=== PATIENT | male | born 1965 | race Caucasian/White ===

== ENCOUNTER 2017-02-18 07:59 | Emergency (ER) | payer BC ==
[~2017-02-18] VITALS: Ht 180.3 cm; Wt 80.0 kg
[2017-02-18 08:03] VITALS: BP 149/101; PULSE 90; RESP 16; TEMP 97.8; O2SAT 99
[2017-02-18] MEDS ORDERED: ANDR1.62 TOPICAL (08:12)
[2017-02-18] MEDS ORDERED: HYDR-3583 PO (08:49)
[2017-02-18] MEDS ORDERED: SOMA350T PO (08:49)
--- NOTE | 2017-02-18 08:49 | PD ---
HPI Chief Complaint: Back/ Neck Pain or Injury Time Seen by Provider: 08:41 Travel History International Travel<30 days: No Contact w/Intl Traveler<30days: No Traveled to known affect area: No History of Present Illness HPI Patient presents with intractable right sciatic pain for 10 days. Denies any acute misstep or fall. Reports injury to his lower back when he was in his 20s with intermittent episodes of aggravated right sciatic pain that normally responds to nonsteroidal anti-inflammatories warm heat gentle stretching and strengthening and massage. Reports yearly MRI. This episode however has persisted. He reports evaluation in 2 separate emergency rooms. Failed oral pain medications muscle relaxers and steroid tapers. States he is attempted to see a neurologist with inability to be evaluated. Reports severe pain to light touch in the right lower extremity with decreased muscle strength. Reports using a cane regularly. Reports using a wheelchair. PFSH Past Medical History Medical History: Denies Significant Hx Diminished Hearing: No Tetanus Vaccination: < 5 Years Past Surgical History Tonsillectomy: Yes Social History Alcohol Use: No Tobacco Use: No Substance Use: No Allergies-Medications (Allergen,Severity, Reaction): Coded Allergies: No Known Allergies (Unverified , 02/18/17) Reported Meds & Prescriptions Reported Meds & Active Scripts Active Soma (Carisoprodol) 350 Mg Tab 350 Mg PO QID PRN Hydrocodone-Acetaminophen 10-325 mg Tab 1 Tab PO Q4H PRN Reported Androgel Pump Topical (Testosterone) 1.62 % Gel 20.25 Mg TOPICAL DAILY Review of Systems General / Constitutional: No: Fever Eyes: No: Visual changes HENT: No: Headaches Cardiovascular: No: Chest Pain or Discomfort Respiratory: No: Shortness of Breath Gastrointestinal: No: Abdominal Pain Genitourinary: No: Dysuria Musculoskeletal: No: Pain Skin: No Rash Neurologic: No: Weakness Psychiatric: No: Depression Endocrine: No: Polydipsia Hematologic/Lymphatic: No: Easy Bruising Physical Exam Narrative GENERAL: Well-nourished, well-developed patient. SKIN: Focused skin assessment warm/dry. HEAD: Normocephalic. EYES: No scleral icterus. No injection or drainage. NECK: Supple, trachea midline. No JVD or lymphadenopathy. CARDIOVASCULAR: Regular rate and rhythm without murmurs, gallops, or rubs. RESPIRATORY: Breath sounds equal bilaterally. No accessory muscle use. GASTROINTESTINAL: Abdomen soft, non-tender, nondistended. MUSCULOSKELETAL: No cyanosis, or edema. BACK: Examination lumbar sacral spine reveals no midline tenderness right sided paraspinous pain radiating to the gluteus. Exaggerated pain response to light touch over the entire leg. Positive Babinski's. Exaggerated muscle weakness of the right lower extremity and exaggerated muscle strength in the left lower extremity. Data Data Last Documented VS Vital Signs Date Time Temp Pulse Resp B/P Pulse Ox O2 Delivery O2 Flow Rate FiO2 02/18/17 08:03 97.8 90 16 149/101 99 MDM Medical Decision Making Medical Screen Exam Complete: Yes Emergency Medical Condition: Yes Differential Diagnosis Right sciatic pain, lumbar sacral degenerative disc disease, cauda equina syndrome, drug-seeking behavior Narrative Course Assessment and plan discussed with patient at bedside. Patient seemed to be requesting admission for evaluation by neurology since he was unable to get into the office sooner. Discussed viable options with the patient and is amiable to a mandatory referral to neurology with pain medication and muscle relaxers for the weekend. Diagnosis Primary Impression: Right sciatic nerve pain Patient Instructions: General Instructions Additional Instructions: Encouraged nonsteroidal anti-inflammatories warm heat gentle stretching and strengthening and massage. Pain medication and muscle relaxer as needed. Med/Other Pt SpecificInfo: Prescription(s) given Scripts Carisoprodol (Soma)350 Mg Csv350 Mg PO QID PRN (PAIN) #20 TAB Ref 0 Prov:Burton Granda MD 02/18/17 Hydrocodone-Acetaminophen 10-325 mg Tab1 Tab PO Q4H PRN (PAIN) #20 TAB Ref 0 Prov:Burton Grnada MD 02/18/17 Disposition: 01 DISCHARGE HOME Condition: Good Burton Granda MD Feb 18, 2017 08:49
== END 2017-02-18 09:10 | disposition home or self-care (01) ==
LOC: PHEFT 07:59
DX: M54.31 Sciatica, right side (principal)
CPT/HCPCS: 99284